=== PATIENT | female | born 1950 | race Caucasian/White ===

== ENCOUNTER → 2020-11-12 | Outpatient (CLI) | payer MEDICARE, OTHER ==
[~2020-11-12] MED LIST: ANTIVERT 12.512.5 MG PO; AUGMENTIN 875-1 EACH PO
== END ==
LOC: US 13:54
DX: N63.21 Unspecified lump in the left breast, upper outer quadrant (principal); C50.911 Malignant neoplasm of unspecified site of right female breast; R59.0 Localized enlarged lymph nodes
CPT/HCPCS: 76536; 76641-LT; 77065; G0279

== ENCOUNTER → 2021-05-14 | Outpatient (CLI) | payer MEDICARE, OTHER | LOC: US 13:49 | DX: R92.2 Inconclusive mammogram (principal) | CPT/HCPCS: 76641-LT ==

== ENCOUNTER → 2021-11-06 | Outpatient (CLI) | payer MEDICARE, OTHER | LOC: MAMO 11:30 → US 13:30 | DX: Z12.31 Encounter for screening mammogram for malignant neoplasm of breast (principal); N63.21 Unspecified lump in the left breast, upper outer quadrant; J01.90 Acute sinusitis, unspecified; Z71.2 Person consulting for explanation of examination or test findings; R30.0 Dysuria; Z90.11 Acquired absence of right breast and nipple | CPT/HCPCS: 76642-LT; 77063; 77067 ==